=== PATIENT | female | born 1955 | race Caucasian/White ===

== ENCOUNTER 2021-03-29 15:48 | Emergency (ER) | payer MEDICARE ==
[~2021-03-29] VITALS: Ht 165.1 cm; Wt 80.7 kg
[2021-03-29] MEDS ORDERED: CITALOPRAM HBR20 MG PO (16:07)
[2021-03-29] MEDS ORDERED: PANTOPRAZOLE SO20 MG PO (16:07)
[2021-03-29] MEDS ORDERED: ZESTRIL10 MG PO (16:07)
== END 2021-03-29 17:33 | disposition home or self-care (01) ==
LOC: ED 15:48
DX: S67.21XA Crushing injury of right hand, initial encounter (principal); W23.1XXA Caught, crushed, jammed, or pinched between stationary objects, initial encounter; I10 Essential (primary) hypertension; Z88.5 Allergy status to narcotic agent; Z79.899 Other long term (current) drug therapy
CPT/HCPCS: 73130; 99283-25